=== PATIENT | female | born 1995 | race Caucasian/White ===

== ENCOUNTER 2021-11-19 00:53 | Emergency (ER) | payer MEDICAID, SELFPAY ==
[2021-11-19 00:30] VITALS: BP 134/93; PULSE 117; RESP 18; TEMP 36.9; O2SAT 99; BMI 21.2
[2021-11-19 00:32] VITALS: BMI 21.2
--- NOTE | 2021-11-19 00:32 | CT_ITS ---
PROCEDURE INFORMATION: Exam: CT Head Without Contrast Exam date and time: 11/19/2021 1:36 AM Age: 26 years old Clinical indication: Pain; Headache not specified; Additional info: Headache post seizure TECHNIQUE: Imaging protocol: Computed tomography of the head without contrast. Radiation optimization: All CT scans at this facility use at least one of these dose optimization techniques: automated exposure control; mA and/or kV adjustment per patient size (includes targeted exams where dose is matched to clinical indication); or iterative reconstruction. COMPARISON: No relevant prior studies available. FINDINGS: Brain: No hemorrhage. Unremarkable white matter. No mass effect. Cerebral ventricles: No ventriculomegaly. Paranasal sinuses: Mucosal thickening right maxillary sinus and ethmoid air cells. No fluid levels. Mastoid air cells: Visualized mastoid air cells are well aerated. Bones/joints: Unremarkable. No acute fracture. Soft tissues: Unremarkable. IMPRESSION: No acute intracranial abnormality.
[2021-11-19 00:55] LABS: Microscopic, Urine URINE MICROSCOPIC (MICROSCOPIC)
[2021-11-19 00:57] LABS: Basophils # 0.2 K/mm3 (0-0.2); Basophils % 1.9 % (0.1-2.0); Eosinophils # 0.1 K/mm3 (0.0-0.4); Eosinophils % 1.3 % (0.1-12.0); Hematocrit 39.1 % (37.0-47.0); Lymphocytes % 10.8 % (10-50); Mean Corpuscular HGB Conc 33.3 g/dL (31.8-35.4); Mean Corpuscular Hemoglobin 27.8 pg (27.0-31.2); Mean Corpuscular Volume 83.4 fl (81-99); Mean Platelet Volume 8.1 fl (7.4-10.4); Monocytes # 0.5 K/mm3 (0.1-1.0); Monocytes % 5.7 % (1.7-9.3); Neutrophils # 7.6 K/mm3 (1.8-7.8); Neutrophils % 80.2 % (37.0-80.0); Platelet Count 311 K/mm3 (142-424); Red Blood Count 4.69 M/mm3 (4.20-5.40); Red Cell Distribution Width 15.5 % (11.5-17.5); White Blood Count 9.4 K/mm3 (4.8-10.8)
[2021-11-19 01:00] VITALS: BP 129/82; O2SAT 98
[2021-11-19 01:09] LABS: Barbiturates Screen,Urine Negative ng/ml (<200); Benzodiazepines Screen,Urine Negative ng/ml (<200)
[2021-11-19 01:10] LABS: Amphetamine/Metha Screen,Urine Negative ng/ml (<1000)
[2021-11-19 01:11] LABS: Cannabinoid Screen,Urine Negative ng/ml (<50); Cocaine Screen,Urine Negative ng/ml (<300)
[2021-11-19 01:12] LABS: Methadone Screen,Urine Negative ng/ml (<300)
[2021-11-19 01:13] LABS: Alanine Aminotransferase 20 U/L (12-78); Albumin Level 4.5 g/dl (3.5-5.0); Albumin/Globulin Ratio 1.3 (1.1-1.8); Alkaline Phosphatase 85 U/L (38-126); Anion Gap 13.5 mEq/L (5-15); Aspartate Amino Transferase 31 U/L (14-36); Bilirubin,Total 0.6 mg/dl (0.2-1.3); Blood Urea Nitrogen 11 mg/dl (7-17); Calcium 8.9 mg/dl (8.4-10.2); Carbon Dioxide 25 mmol/L (22.0-30.0); Chloride 104 mmol/L (98-107); Creatinine Clearance Estimated 148 mL/min (50-200); Estimated Glomerular Filt Rate 150 ml/min (>60); GFR (African American) 182 ML/MIN (>60); Globulin 3.4 g/dL (1.3-3.2); Glucose 110 mg/dl (74-100); Potassium 3.5 mmoL/L (3.5-5.1); Sodium 139 mmol/L (136-145); Total Protein,Serum 7.9 g/dl (6.3-8.2)
[2021-11-19 01:13] LABS: Opiate Screen,Urine Negative ng/ml (<300); Phencyclidine Screen,Urine Negative ng/ml (<25)
[2021-11-19 01:18] LABS: C-Reactive Protein 11.4 mg/L (0-4)
[2021-11-19 01:26] LABS: Erythrocyte Sedimentation Rate 23 mm/hr (0-20)
[2021-11-19 01:29] LABS: Procalcitonin 0.052 ng/mL (0.0-2.0)
[2021-11-19 01:30] VITALS: BP 128/75; O2SAT 99
[2021-11-19 01:30] LABS: Appearance,Urine CLEAR (Clear); Bilirubin,Urine Negative (Negative); Blood, Urine 2+ (Negative); Color,Urine YELLOW (Yellow); Glucose,Urine (UA) Negative (Negative); Ketones,Urine Negative (Negative); Leukocyte Esterase,Urine TRACE (Negative); Nitrate,Urine Negative (Negative); Protein,Urine TRACE (Negative); Specific Gravity, Urine 1.015 (1.005-1.030); Urobilinogen,Urine 0.2 EU/dl (0.2)
[2021-11-19 01:33] LABS: Urine Pregnancy, HCG Qual. Negative (Negative)
--- NOTE | 2021-11-19 01:40 | [facility].EDSEIZ ---
ED Disposition Clinical Impression: Generalized seizure Lower extremity pain Qualifiers: Laterality: right Qualified Code(s): M79.604 - Pain in right leg Disposition: Left Against Medical Advice Condition on Discharge: Good Instructions: DI for Seizure Disorder -- Adult Additional Instructions: fluids and call pcp and neuro for follow up Referrals: Provider,MD Sabi [Primary Care Provider] - Mildred Mireles MD [Staff Physician] - - Critical Care Critical Care Time: No Attestation: On , the high probability of a clinically significant, sudden or life threatening deterioration of the following system(s) required my full and direct attention, intervention and personal management. The time I documented below is in addition to time spent performing reported procedures but includes the following listed in this critical care notation. Medical Decision Making - Medical Records Medical records reviewed: Yes: I reviewed the patient's medical records. - Rickie Inquiry Pt receiving controlled substance: No Vital Signs: 11/19/21 00:30 11/19/21 01:00 11/19/21 01:30 Temperature 98.4 F Temperature Source Oral Pulse Rate [Right] 117 H Respiratory Rate 18 Blood Pressure 129/82 128/75 Blood Pressure [Right Arm] 134/93 H Blood Pressure Mean 95 86 Blood Pressure Mean [Right Arm] 106 02 Sat by Pulse Oximetry 99 98 99 - Lab Data Lab results reviewed: Yes: I reviewed the patient's lab results. Lab Results 11/19/21 00:30: WBC 9.4, RBC 4.69, Hgb 13.0, Hct 39.1, MCV 83.4, MCH 27.8, MCHC 33.3, RDW 15.5, Plt Count 311, MPV 8.1, Neut % (Auto) 80.2 H, Lymph % (Auto) 10.8, [place] % (Auto) 5.7, Eos % (Auto) 1.3, Baso % (Auto) 1.9, Neut # (Auto) 7.6, Lymph # (Auto) 1.0, [place] # (Auto) 0.5, Eos # (Auto) 0.1, Baso # (Auto) 0.2, ESR 23 H 11/19/21 00:30: Sodium 139, Potassium 3.5, Chloride 104, Carbon Dioxide 25, Anion Gap 13.5, BUN 11, Creatinine 0.50 L, Estimated Creat Clear 148, Estimated GFR 150, Est GFR ( Amer) 182, Glucose 110 H, Calcium 8.9, Total Bilirubin 0.6, AST 31, ALT 20, Alkaline Phosphatase 85, C-Reactive Protein 11.4 H, Total Protein 7.9, Albumin 4.5, Globulin 3.4 H, Albumin/Globulin Ratio 1.3, Procalcitonin 0.052 11/19/21 00:45: Urine Color Yellow, Urine Appearance Clear, Urine pH 6.0, Ur Specific [place] 1.015, Urine Protein Trace, Urine Glucose (UA) Negative, Urine Ketones Negative, Urine Blood 2+, Urine Nitrate Negative, Urine Bilirubin Negative, Urine Urobilinogen 0.2, Ur Leukocyte Esterase Trace, Urine RBC 5-10, Urine WBC Occasional, Ur Squamous Epith Cells 10-20, Amorphous Sediment Trace, Urine Mucus Trace 11/19/21 00:45: Urine HCG, Qual Negative 11/19/21 00:45: Urine Opiates Screen Negative, Urine Methadone Screen Negative, Ur Barbituates Screen Negative, Ur Phencyclidine Scrn Negative, Ur Amphetamines Screen Negative, U Benzodiazepines Scrn Negative, Urine Cocaine Screen Negative, U Marijuana (THC) Screen Negative Result diagrams: 11/19/21 00:30 11/19/21 00:30 Orders (Tests/Meds): ED MEDICATIONS Generic Name Dose Route Start Last Admin Trade Name Freq PRN Reason Stop Dose Admin Sodium Chloride 1,000 mls @ 999 mls/hr 11/19/21 02:45 Sod Chlor 0.9% 1000ml Bag IV 11/19/21 03:45 .[id number] LIZZETTE Discontinued Medications Generic Name Dose Route Start Last Admin Trade Name Freq PRN Reason Stop Dose Admin Ketorolac Tromethamine 30 mg 11/19/21 02:40 Ketorolac 30mg/Ml Vial IV 11/19/21 02:41 ONCE ONE ORDERS Category Date Time Status Creatine Kinase Stat Lab 11/19/21 02:40 Ordered - CT Data CT Scan: Head Time Received: 02:[address] Reviewed: Yes: I have viewed the radiologist's interpretation Preliminary Findings: Normal/NAD Medical Decision Narrative: possible sz and has stable exam and labs - does not wish to stay to complete eval Seizures HPI - General Chief Complaint: Seizure Stated Complaint: seizure Time Seen by Provider: 11/19/21 00:55 Mod
[2021-11-19 01:41] LABS: Amorphous Sediment,Urine Trace /lpf; Mucus,Urine Trace /lpf; WBC,Urine Occasional #/hpf (0-3)
[2021-11-19 02:50] LABS: Creatine Kinase 60 U/L (30-135)
[2021-11-19 03:06] VITALS: BP 119/78; PULSE 97; RESP 18; TEMP 36.9; O2SAT 99
== END 2021-11-19 03:08 | disposition left against medical advice (07) ==
PROVIDERS: Emergency Provider Emergency Medicine
DX: G40.909 Epilepsy, unspecified, not intractable, without status epilepticus (principal); M79.604 Pain in right leg
CPT/HCPCS: 70450; 80053; 80305; 81001; 81025; 82550; 84145; 85025; 85651; 86140; 96361; 96374; 99284